=== PATIENT | male | born 1990 | race Caucasian/White ===

== ENCOUNTER 2020-05-02 10:31 | Emergency (ER) | payer OTHER ==
[~2020-05-02] VITALS: Ht 185.4 cm; Wt 144.7 kg
[2020-05-02 10:43] VITALS: Ht 185.4 cm; Wt 144.7 kg
[2020-05-02 12:34] VITALS: BP 169/106
== END 2020-05-02 12:34 | disposition home or self-care (01) ==
LOC: ED 10:31
DX: K62.89 Other specified diseases of anus and rectum (principal); K64.4 Residual hemorrhoidal skin tags